=== PATIENT | male | born 1960 | race Caucasian/White ===

== ENCOUNTER 2019-04-17 14:39 | Inpatient (IN) | payer OTHER ==
--- NOTE | 2019-04-17 14:52 | PDOC ---
History of Present Illness - General Chief Complaint: Shortness of Breath Stated Complaint: DIFFICULTY BREATHING Time Seen by Provider: 04/17/19 14:51 History Source: Patient Exam Limitations: No Limitations - History of Present Illness Initial Comments: Pt is a 58 yo M, with PMH of HTN, HLD, and CHF (prior echo 2014, severely reduced EF, completely non-compliant with medication), who presents with complaints of SOB since yesterday. Pt states he has been on vacation last 2 weeks, and has been eating more salty food and drinking beer. Pt states he stopped taking his medication in 2015 because he "was feeling fine" and " worried about his liver from the cholesterol medication". Pt states the SOB is with exertion only, has never had this problem before, and was able to sleep throughout the night. Pt denies any fevers/chills, headache, vision changes, syncope, chest pain, cough, palpitations, orthopnea/PND, nausea/vomiting, abdominal pain, urinary symptoms, diarrhea/constipation, or leg swelling. EMS provided 500 mL IV NS, which was stopped on pt arrival to ED. 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 Drinks beer socially. Denies illicit drug use. Pt denies any recent travel or sick contacts. Surgical: remote L knee surgery Family: no relevant history. 04/17/19 15:31 04/17/19 15:44 Past History - Travel Traveled outside of the country in the last 30 days: No Close contact w/someone who was outside of country & ill: No - Past Medical History Allergies/Adverse Reactions: Allergies Allergy/AdvReac Type Severity Reaction Status Date / Time No Known Allergies Allergy Verified 08/18/16 18:22 Home Medications: Ambulatory Orders Aspirin [ASA -] 81 mg PO DAILY #30 tab.chew 03/14/15 Atorvastatin Ca [Lipitor] 20 mg PO HS #30 tablet 03/14/15 Carvedilol [Coreg -] 6.25 mg PO BID #60 tablet 03/14/15 Ramipril [Altace] 2.5 mg PO DAILY #30 capsule 03/14/15 Spironolactone [Aldactone -] 25 mg PO DAILY #30 tablet 03/14/15 COPD: No Diabetes: Yes (DIET CONTROLLED) HTN: Yes Hypercholesterolemia: Yes - Surgical History Orthopedic Surgery: Yes (Left knee) - Suicide/Smoking/Psychosocial Hx Smoking History: Current every day smoker Have you smoked in the past 12 months: Yes Number of Cigarettes Smoked Daily: 20 Information on smoking cessation initiated: No 'Breaking Loose' booklet given: 03/12/15 Hx Alcohol Use: No Drug/Substance Use Hx: No Substance Use Type: None Hx Substance Use Treatment: No Review of Systems - Review of Systems Able to Perform ROS?: Yes Is the patient limited Thai proficient: No Constitutional: Yes: Weight Stable. No: Chills, Diaphoresis, Fever, Loss of Appetite, Malaise, Weakness HEENTM: No: Blurred Vision, Double Vision, Nose Congestion, Throat Pain, Throat Swelling, Difficulty Swallowing Respiratory: Yes: Shortness of Breath, SOB with Exertion. No: Cough, Orthopnea , SOB at Rest, Wheezing, Productive cough, Hemoptysis Cardiac (ROS): No: Chest Pain, Edema, Irregular Heart Rate, Lightheadedness, Palpitations, Syncope, Chest Tightness ABD/GI: Yes: Abdominal Distended (since vacation and "eating salty food"). No: Constipated, Diarrhea, Nausea, Poor Appetite, Poor Fluid Intake, Rectal Bleeding , Vomiting, Abdominal cramping : No: Burning, Dysuria, Frequency, Pain, Urgency Musculoskeletal: No: Back Pain, Joint Pain, Muscle Pain, Muscle Weakness Integumentary: No: Rash, Sweating Neurological: No: Headache, Weakness, Unsteady Gait, Dizziness Psychiatric: No: Sleep Pattern Change, Change in Appetite Endocrine: No: Increased Urine, Change in Weight Hematologic/Lymphatic: No: Anemia, Blood Clots, Easy Bleeding, Easy Bruising All Other Systems: Reviewed and Negative *Physical Exam - Vital Signs Last Vital Signs Temp Pulse Resp BP Pulse Ox 98.7 F 123 H 22 H 146/86 100 04/17/19 14:42 04/17/19 14:42 04/17/19 14:42 04/17/19 14:42 04/17/19 14:42 - Physical Exam Comments: Vitals improved on exam (HR 80s, RR 14, 100% on 2L NC), pt afebrile. Pt lying comfortably and able to speak in full sentences; obese body habitus. Pt alert and oriented x3. audio/visual manager generally intact, muscular strength and sensation intact. No midline spinal tenderness, step-offs, or crepitus. Head normocephalic, atraumatic. Eyes PERRLA, EOMI. Oropharynx without erythema or exudates, no LAD b/l. No nasal congestion, hearing intact. Clear heart sounds, S1/S2, no JVD, b/l pedal edema, or heart murmur. Diminished breath sounds throughout, coarse breath sounds at b/l posterior bases. No wheezing or accessory muscle use. No abdominal or CVA tenderness to palpation, no rebound, no guarding. Abdomen soft, protuberant, and with normoactive bowel sounds. Skin without jaundice or rash. 04/17/19 15:36 Vital Signs - Vital Signs #1 Blood Pressure: 148/90 MAP: 109 BP Location: Right Arm Blood Pressure Position: Sitting Pulse Rate: 86 Respiratory Rate: 12 O2 Sat by Pulse Oximetry (%): 98 Oxygen Delivery Method: Room Air Oxygen Flow Rate: 0 ED Treatment Course - LABORATORY CBC & Chemistry Diagram: 04/17/19 15:20 04/17/19 15:25 Medical Decision Making - Medical Decision Making Pt was seen at bedside, also will be seen by attending Dr. Yeh. Pt presenting with SOB on exertion, with recent salty food intake/alcohol, non-compliant with CHF/HTN/HLD medications x3 years, most consistent with CHF exacerbation. Last echo done 2014 showed severely reduced EF. No recent surgeries, travel, and HR improved with NC O2, PE lower on differential. Will evaluate for CHF, ACS, pleural effusion vs infiltrate, renal dysfunction. EMS provided 500 mL IVF, which were stopped in the ER for concern of diminished EF. Pt states breathing is comfortable at this time. Providing 2L NC and saturation is 100%. Will wean from O2 as tolerated. Will continue to reassess pt and monitor for symptomatic improvement. ECG: Sinus arrhythmia, borderline LVH. No TWIs or significant ST segment changes. No significant changes from prior ECG (2016). 04/17/19 15:41 Chest x-ray shows atelectasis at R base. 04/17/19 15:46 CBC and CMP WNL lipid profile elevated trop <.02 Cardiology consulted (Dr. Perez) who fill follow pt. Providing 40 IV lasix, vitals improved and pt now breathing comfortably on room air. Pt admitted to hospitalist team (Dr. Smith). 04/17/19 17:03 *DC/Admit/Observation/Transfer Diagnosis at time of Disposition: Shortness of breath HTN (hypertension) Qualifiers: Hypertension type: unspecified Qualified Code(s): I10 - Essential (primary) hypertension CHF (congestive heart failure) Qualifiers: Heart failure type: unspecified Heart failure chronicity: acute on chronic Qualified Code(s): I50.9 - Heart failure, unspecified - Discharge Dispostion Condition at time of disposition: Stable Decision to Admit order: Yes - Referrals - Patient Instructions - Post Discharge Activity
--- NOTE | 2019-04-17 15:18 | PDOC ---
Documentation entered by Marjan Kulkarni SCRIBE, acting as scribe for Nazanin Yeh MD. Nazanin Yeh MD: This documentation has been prepared by the Shad forbes Mackenzie, SCRIBE, under my direction and personally reviewed by me in its entirety. I confirm that the documentation accurately reflects all work , treatment, procedures, and medical decision making performed by me. Attending Attestation - Resident Resident Name: NinaMaylin - ED Attending Attestation I have performed the following: I have examined & evaluated the patient, The case was reviewed & discussed with the resident, I agree w/resident's findings & plan - HPI HPI: Patient is a 58 year old male with a significant PMH of HTN, HLD, NSTEMI (2015) and CHF (noncompliant with medications for all conditions) who presents to the ED with one day1 of shortness of breath. 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 Patient states his last ecco was in 2014 (pertinent findings as per resident note). Patient notes that for the past few weeks he was on vacation (no travel by air) and endorses an increase in sodium and Etoh intake. Denies fever, chills, chest pain, palpitation, dizziness, N, V, D, abdominal pain, bladder and bowel problems, leg swelling, No sick contacts or travel outside of the [place] No new changes in medications. noncompliant with meds Allergies: None Past Medical History: as documented in EMR/HPI 04/17/19 15:25 04/17/19 15:58 - Physicial Exam PE: Agree with the resident's HPI and PE as documented in the electronic medical record. NAD, well appearing, on nasal cannula, EOMI, PERRL, nl conjunctiva, anicteric; neck supple. no JVD. lungs clear, RRR, no murmur, abdomen soft nontender. Back nontender. SMITH x4, no focal neuro deficits. trace peripheral edema. normal color for ethnicity, WWP. 04/17/19 15:26 04/17/19 15:57 - Medical Decision Making 04/17/19 15:16 See HPI for details. Prior notes reviewed, including admissions, discharges and consultations. Vital signs reviewed, initially tachy and tachypneic. improved with O2 Vital Signs Temp Pulse Resp BP Pulse Ox 98.7 F 123 H 22 H 146/86 100 04/17/19 14:42 04/17/19 14:42 04/17/19 14:42 04/17/19 14:42 04/17/19 14:42 DDx SOB:/CP ACS, PE, PTX, CHF, COPD exac, pulmonary edema, pleurisy, pneumonia, viral syndrome. effusion. anemia, electrolyte/metabolic derangements. laboratory results and imaging reviewed, basic labs and lytes wnl Cardiac panel_neg trop, +BNP 1700 suggestive of CHF EKG normal sinus rhythm, no interval abnormalities, narrow QRS, ST and T wave segments and morphology normal. Nonspecific T wave abnormalities ED course - last echo in 2014 when he had NSTEMI with severely depressed EF; otherwise has been poorly compliant with meds and recent salty intake and now SOB suggestive of CHF. admit for likely CHF, poor medication compliance and precipitation of his symptoms today admit to hospitalist service 04/17/19 15:58 04/18/19 13:29 Heart Score/ECG Review #1 ECG reviewed & interpreted by me at: 15:00 General ECG Interpretation: Sinus Rhythm, Normal Rate, Normal Intervals Compared to previous ECG there are: No significant change 04/17/19 15:56 EKG normal sinus rhythm at 83 bpm, no interval abnormalities, narrow QRS, ST and T wave segments and morphology normal. Nonspecific T wave abnormalities
--- NOTE | 2019-04-17 15:32 | CON.CARD ---
Consult Consult Specialty:: Cardiology Referred by:: Emergency Medicine Reason for Consultation:: CHF - History of Present Illness Chief Complaint: Dyspnea History of Present Illness: Patient is a 58 year old male with a significant PMH of HTN heart disease, HLD, and CHF with severely decreased LVEF 2014 (noncompliant with medications for all conditions) who presents to the ED with one day 1 of shortness of breath with exertion, increased bilateral LE edema. 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 He denies chest pain, near or true syncope, palpitations, orthopnea, PND or NSAID use. Allergies: None Past Medical History: as documented in EMR/HPI - History Source History Provided By: Patient Limitations to Obtaining History: No Limitations - Past Medical History Cardio/Vascular: Yes: HTN - Alcohol/Substance Use Hx Alcohol Use: No - Smoking History Smoking history: Current every day smoker Have you smoked in the past 12 months: Yes Aproximately how many cigarettes per day: 20 Home Medications - Allergies Allergies/Adverse Reactions: Allergies Allergy/AdvReac Type Severity Reaction Status Date / Time No Known Allergies Allergy Verified 08/18/16 18:22 - Home Medications Home Medications: Ambulatory Orders Aspirin [ASA -] 81 mg PO DAILY #30 tab.chew 03/14/15 Atorvastatin Ca [Lipitor] 20 mg PO HS #30 tablet 03/14/15 Carvedilol [Coreg -] 6.25 mg PO BID #60 tablet 03/14/15 Ramipril [Altace] 2.5 mg PO DAILY #30 capsule 03/14/15 Spironolactone [Aldactone -] 25 mg PO DAILY #30 tablet 03/14/15 Review of Systems - Review of Systems Cardiovascular: reports: Edema, Shortness of Breath Respiratory: reports: Exercise Intolerance, SOB on Exertion Vital Signs: Vital Signs Temperature 98.7 F 04/17/19 14:42 Pulse Rate 123 H 04/17/19 14:42 Respiratory Rate 22 H 04/17/19 14:42 Blood Pressure 146/86 04/17/19 14:42 O2 Sat by Pulse Oximetry (%) 100 04/17/19 14:42 Constitutional: Yes: No Distress, Calm Neck: Yes: Supple Respiratory: Yes: Regular, Diminished, On Nasal O2 Gastrointestinal: Yes: Normal Bowel Sounds, Soft, Abdomen, Obese Cardiovascular: Yes: Regular Rate and Rhythm JVD: Yes Carotid Bruit: No Heart Sounds: Yes: S1, S2 Murmur: Yes: Systolic Murmur, Grade 1 Edema: Yes Edema: LLE: 1+, RLE: 1+ - Other Data Labs, Other Data: Troponin, BNP 04/17/19 15:20 B-Natriuretic Peptide Cancelled Troponin, BNP 04/17/19 15:20 B-Natriuretic Peptide Cancelled NSR @ 80 LAE, LVH with PAC Ejection Fraction %: LVEF < 40 % Imaging - Results Chest X-ray: Pending, Report Reviewed (Right base ATX) Problem List - Problems (1) Acute on chronic systolic and diastolic heart failure, NYHA class 3 Code(s): I50.43 - ACUTE ON CHRONIC COMBINED SYSTOLIC AND DIASTOLIC HRT FAIL (2) Hypertensive cardiomyopathy Code(s): I11.9 - HYPERTENSIVE HEART DISEASE WITHOUT HEART FAILURE; I43 - CARDIOMYOPATHY IN DISEASES CLASSIFIED ELSEWHERE Qualifiers: Heart failure presence: with heart failure Qualified Code(s): I11.0 - Hypertensive heart disease with heart failure; I43 - Cardiomyopathy in diseases classified elsewhere (3) Hyperlipidemia Code(s): E78.5 - HYPERLIPIDEMIA, UNSPECIFIED Qualifiers: Hyperlipidemia type: pure hypercholesterolemia Qualified Code(s): E78.00 - Pure hypercholesterolemia, unspecified; E78.0 - Pure hypercholesterolemia (4) Noncompliance with medication regimen Code(s): Z91.14 - PATIENT'S OTHER NONCOMPLIANCE WITH MEDICATION REGIMEN Assessment/Plan 03/13/2015 Echocardiogram shows moderately dilated LV with severe decrease in LV function, mild MR, TR, mild LAE 1. Acute on chronic LV systolic failure referable to dietary and medication noncompliance 2. Hypertensive cardiovascular disease 3. Hyperlipidemia 1. Cycle cardiac enzymes to document peak, check BNP, TSH, lipid panel 2. IV diuresis with monitor diuretic response, renal fxn and electrolytes 3. Repeat echo to assess ventricular and valve fxn 4. Resume carvedilol 6.25 bid, Lipitor 20 qhs, start Entresto 24/26 bid, add spirinolactone 25 qd and uptitrate as tolerated after lab review 5. Will require R&LHC to evaluate etiology of cardiomyopathy once euvolemic 6. Thank you for consultative opportunity
[2019-04-17 15:52] LABS: BASO % 0.8 % (0-2.0); HEMATOCRIT 45.8 % (35.4-49); HEMOGLOBIN 15.5 GM/dL (11.7-16.9); LYMPH % 18.2 % (8-40); MCH 31.8 pg (25.7-33.7); MCHC 33.9 g/dl (32.0-35.9); MEAN CELL VOLUME 93.7 fl (80-96); MEAN PLT VOLUME 8.9 fl (7.5-11.1); MONO % 6.3 % (3.8-10.2); NEUT % 71.7 % (42.8-82.8); PLATELET COUNT 273 K/MM3 (134-434); RBC 4.89 M/mm3 (4.00-5.60); WHITE BLOOD COUNT 9.3 K/mm3 (4.0-10.0)
[2019-04-17 15:54] LABS: VENOUS PC02 34.8 mmHg (41-51); VENOUS PH 7.46 (7.31-7.41); VENOUS PO2 59.9 mmHg (30-40)
[2019-04-17 16:05] LABS: ALBUMIN 3.5 g/dl (3.4-5.0); BILIRUBIN,TOTAL 0.7 mg/dL (0.2-1); BLOOD UREA NITROGEN 10.7 mg/dL (7-18); CREATININE 0.8 mg/dL (0.55-1.3); N-TERMINAL BNP 1790.9 pg/ml (5-125); POTASSIUM 4.4 mmol/L (3.5-5.1); TOT PROT 6.3 g/dl (6.4-8.2)
[2019-04-17 16:09] LABS: INR 1.08 (0.83-1.09); PROTHROMBIN TIME (PATIENT) 12.8 SEC (9.7-13.0)
[2019-04-17] MEDS ORDERED: FUROSEMIDE 40 MG/4 ML INJECTABLE VIAL IVPUSH ONE (16:56)
[2019-04-17] MEDS ORDERED: FUROSEMIDE 40 MG/4 ML INJECTABLE VIAL ONE (17:36)
--- NOTE | 2019-04-17 18:05 | HP ---
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 He reports he is unable to walk one block without getting shortness of breath. He denied chest pain, orthopnea, PND , dizziness, palpitations or syncopy. He reports he stopped taking his medications about 5 years ago because has felt well. He reports he eats food high in salt and stomach has increased in size as he was on vacation at home and reported he ate more and drank alcohol . Upon evaluation in the Emergency Room BNP is 1790. CXR with pulmonary vascular congestion. Troponin was normal.Heart rate and oxygen saturation levels are normal. Cardiology has been consulted. He received one dosage of IV lasix 40 mg . He is being admitted to telemetry for further cardiac management and IV diuresis. Recent Travel:denies PAST MEDICAL HISTORY: hypertension hyperlipidemia systolic congestive heart failure PAST SURGICAL HISTORY: denies Social History: Smoking:yes, smokes 1ppd for the past year, smoked in his earlier years and stopped however restarted over the past year Alcohol:yes Drugs: no Family History: Denies cardiac family history Allergies No Known Allergies Allergy (Verified 08/18/16 18:22) HOME MEDICATIONS: Home Medications Medication Instructions Recorded Aspirin [ASA -] 81 mg PO DAILY #30 tab.chew 03/14/15 Atorvastatin Ca [Lipitor] 20 mg PO HS #30 tablet 03/14/15 Carvedilol [Coreg -] 6.25 mg PO BID #60 tablet 03/14/15 Ramipril [Altace] 2.5 mg PO DAILY #30 capsule 03/14/15 Spironolactone [Aldactone -] 25 mg PO DAILY #30 tablet 03/14/15 REVIEW OF SYSTEMS CONSTITUTIONAL: Absent: fever, chills, diaphoresis, generalized weakness, malaise, loss of appetite, weight change HEENT: Absent: rhinorrhea, nasal congestion, throat pain, throat swelling, difficulty swallowing, mouth swelling, ear pain, eye pain, visual changes CARDIOVASCULAR: Absent: chest pain, syncope, palpitations, irregular heart rate, lightheadedness , peripheral edema RESPIRATORY: Absent: cough, shortness of breath, dyspnea with exertion, orthopnea, wheezing, stridor, hemoptysis GASTROINTESTINAL: Absent: abdominal pain, abdominal distention, nausea, vomiting, diarrhea, constipation, melena, hematochezia GENITOURINARY: Absent: dysuria, frequency, urgency, hesitancy, hematuria, flank pain, genital pain MUSCULOSKELETAL: Absent: myalgia, arthralgia, joint swelling, back pain, neck pain SKIN: Absent: rash, itching, pallor HEMATOLOGIC/IMMUNOLOGIC: Absent: easy bleeding, easy bruising, lymphadenopathy, frequent infections ENDOCRINE: Absent: unexplained weight gain, unexplained weight loss, heat intolerance, cold intolerance NEUROLOGIC: Absent: headache, focal weakness or paresthesias, dizziness, unsteady gait, seizure, mental status changes, bladder or bowel incontinence PSYCHIATRIC: Absent: anxiety, depression, suicidal or homicidal ideation, hallucinations. PHYSICAL EXAMINATION Vital Signs - 24 hr 04/17/19 04/17/19 04/17/19 14:41 14:42 17:04 Temperature 98.7 F Pulse Rate 123 H Pulse Rate [#1] 86 Respiratory 22 H Rate Respiratory 12 Rate [#1] Blood Pressure 146/86 Blood Pressure 148/90 [#1] O2 Sat by Pulse 100 100 Oximetry (%) O2 Sat by Pulse 98 Oximetry (%) [ #1] GENERAL: awake alert and fully oriented no acute distress HEAD: normal with no signs of trauma EYES: pupils equal round and reactive to light EARS, NOSE, THROAT: ears normal nares patent NECK:no significant JVD LUNGS: coarse breath sounds equal no wheezing no use of accessory muscles HEART: regular rate and rhythm normal S1 and S2 without murmur ABDOMEN: soft nontender normoactive bowel sounds slightly distended MUSCULOSKELETAL: normal range of motion UPPER EXTREMITIES: 2+ pulses warm well-perfused no cyanosis LOWER EXTREMITIES: 2+ pulses warm well-perfused 1+ lower extremity edema present NEUROLOGICAL: normal speech PSYCHIATRIC: cooperative good eye contact appropriate mood and affect SKIN: warm dry normal turgor no rashes or lesions noted nail beds and lips pink Laboratory Results - last 24 hr 04/17/19 04/17/19 04/17/19 15:15 15:20 15:20 WBC 9.3 RBC 4.89 Hgb 15.5 Hct 45.8 MCV 93.7 MCH 31.8 MCHC 33.9 RDW 14.0 Plt Count 273 D MPV 8.9 Absolute Neuts (auto) 6.7 Neutrophils % 71.7 Lymphocytes % 18.2 Monocytes % 6.3 Eosinophils % 3.0 Basophils % 0.8 Nucleated RBC % 0 PT with INR INR VBG pH 7.46 H POC VBG pCO2 34.8 L POC VBG pO2 59.9 H VBG HCO3 24.5 VBG O2 Sat (Neeraj) 90.9 H VBG Base Excess 1.6 Sodium Potassium Chloride Carbon Dioxide Anion Gap BUN Creatinine Est GFR (CKD-EPI)AfAm Est GFR (CKD-EPI)NonAf Random Glucose Calcium Total Bilirubin AST ALT Alkaline Phosphatase Creatine Kinase Troponin I B-Natriuretic Peptide Cancelled Total Protein Albumin Triglycerides Cholesterol Total LDL Cholesterol HDL Cholesterol 04/17/19 04/17/19 04/17/19 15:20 15:25 15:25 WBC RBC Hgb Hct MCV MCH MCHC RDW Plt Count MPV Absolute Neuts (auto) Neutrophils % Lymphocytes % Monocytes % Eosinophils % Basophils % Nucleated RBC % PT with INR 12.80 INR 1.08 VBG pH POC VBG pCO2 POC VBG pO2 VBG HCO3 VBG O2 Sat (Neeraj) VBG Base Excess Sodium 142 Potassium 4.4 Chloride 108 H Carbon Dioxide 28 Anion Gap 6 L BUN 10.7 Creatinine 0.8 Est GFR (CKD-EPI)AfAm 115.74 Est GFR (CKD-EPI)NonAf 99.86 Random Glucose 103 Calcium 9.0 Total Bilirubin 0.7 AST 26 ALT 53 Alkaline Phosphatase 62 Creatine Kinase 82 Troponin I 0.02 B-Natriuretic Peptide 1790.9 H Total Protein 6.3 L Albumin 3.5 Triglycerides 154 H Cholesterol 220 H Total LDL Cholesterol 153 H HDL Cholesterol 42 ASSESSMENT/PLAN: Mr. Mendoza is a 58 year old male with no recent medical or cardiac follow up with past medical history significant for systolic congestive heart failure with a severely reduced ejection fraction by echocardiogram in 2015, hypertension and hyperlipidemia who presented with worsening shortness of breath on minimal exertion for the past 2 days due to medical and dietary noncompliance.He is being admitted to telemetry for further cardiac management and IV diuresis. #1 Acute on Chronic Systolic Congestive Heart Failure/Cardiomyopathy Workup-BNP 1790, CXR with pulmonary vascular congestion,troponin normal.Heart rate and oxygen saturation levels are normal. Cardiology- Dr. Perez evaluated patient. He received one dosage of IV lasix 40 mg . Continue with IV lasix 40 mg twice daily.Monitor daily weight, strict I&O's, renal studies and electrolytes. Resumed coreg 6.25mg twice daily ,spiroaldactone 25mg once daily and added [id number] twice daily as per Cardiology. Echocardiogram is pending. Once euvolemic will need a right and left heart cardiac catherization to exclude CAD in setting of severe cardiomyopathy. #2Hypertension Uncontrolled (SBP 140's) Resumed coreg, aldactone and added entresto as recommended per Cardiology. #3 Hyperlipidemia Atorvastatin 40 mg once daily was resumed. LFT's are normal. DVT Prophylaxsis -lovenox 30 mg once twice daily FEN -low sodium diet, monitor electrolytes Visit type - Emergency Visit Emergency Visit: Yes ED Registration Date: 04/17/19 Care time: The patient presented to the Emergency Department on the above date and was hospitalized for further evaluation of their emergent condition. - New Patient This patient is new to me today: Yes Date on this admission: 04/17/19 - Critical Care Critical Care patient: No
[2019-04-17] MEDS: ENOXAPARIN NA (PORCINE) 30 MG/0.3 ML DISP.SYRIN SQ SCH (19:00)
[2019-04-17] MEDS ORDERED: ENOXAPARIN NA (PORCINE) 30 MG/0.3 ML DISP.SYRIN SQ ONE (19:23)
[2019-04-17] MEDS: SACUBITRIL/VALSARTAN 24 MG-26 MG TABLET PO SCH (21:51)
[2019-04-17] MEDS: ATORVASTATIN CA 40 MG TABLET (FP) PO SCH (21:51)
[2019-04-17] MEDS: CARVEDILOL 6.25 MG TABLET (FP) PO SCH (21:51)
[2019-04-18] MEDS: ENOXAPARIN NA (PORCINE) 30 MG/0.3 ML DISP.SYRIN SQ SCH (06:21)
[2019-04-18] MEDS: FUROSEMIDE 40 MG/4 ML INJECTABLE VIAL IVPUSH SCH ×2 (06:21→14:23)
[2019-04-18 07:52] LABS: HEMATOCRIT 48.7 % (35.4-49); HEMOGLOBIN 16.7 GM/dL (11.7-16.9); MCH 32.1 pg (25.7-33.7); MCHC 34.2 g/dl (32.0-35.9); MEAN CELL VOLUME 93.8 fl (80-96); MEAN PLT VOLUME 9.1 fl (7.5-11.1); PLATELET COUNT 279 K/MM3 (134-434); RBC 5.19 M/mm3 (4.00-5.60); RDW 14.2 % (11.9-15.9); WHITE BLOOD COUNT 8.8 K/mm3 (4.0-10.0)
[2019-04-18 07:57] LABS: ANION GAP 6 MMOL/L (8-16); CALCIUM 8.9 mg/dL (8.5-10.1); CHLORIDE 106 mmol/L (98-107); CO2 27 mmol/L (21-32); CREATININE 0.8 mg/dL (0.55-1.3); GLUCOSE,RANDOM 128 mg/dL (74-106); SODIUM 139 mmol/L (136-145)
[2019-04-18] MEDS: CARVEDILOL 6.25 MG TABLET (FP) PO SCH ×2 (09:39→22:36)
[2019-04-18] MEDS: ASPIRIN 81 MG CHEWABLE TABLETS PO SCH (09:39)
[2019-04-18] MEDS ORDERED: PT OWN MED DRAWER 7, Y5N ONE ×2 (09:39→21:01)
[2019-04-18] MEDS: SPIRONOLACTONE 25 MG TABLET (FP) PO SCH (09:40)
[2019-04-18] MEDS: SACUBITRIL/VALSARTAN 24 MG-26 MG TABLET PO SCH ×2 (09:40→22:36)
--- NOTE | 2019-04-18 10:41 | PN ---
Progress Note, Physician History of Present Illness: Shortness of breath with exertion, bilateral LE edema resolving with diuresis and afterload reduction. - Current Medication List Current Medications: Active Medications Aspirin (Asa -) 81 mg PO DAILY [facility] Last Admin: 04/18/19 09:39 Dose: 81 mg Atorvastatin Calcium (Lipitor -) 40 mg PO HS [facility] Last Admin: 04/17/19 21:51 Dose: 40 mg Carvedilol (Coreg -) 6.25 mg PO BID [facility] Last Admin: 04/18/19 09:39 Dose: 6.25 mg Enoxaparin Sodium (Lovenox -) 30 mg SQ Q12H [facility] Last Admin: 04/18/19 06:21 Dose: 30 mg Furosemide (Lasix Injection -) 40 mg IVPUSH BID@0600,1400 [facility] Last Admin: 04/18/19 06:21 Dose: 40 mg Sacubitril/Valsartan (Entresto 24 Mg-26 Mg Tablet) 1 tab PO BID [facility] Last Admin: 04/18/19 09:40 Dose: 1 tab Spironolactone (Aldactone -) 25 mg PO DAILY [facility] Last Admin: 04/18/19 09:40 Dose: 25 mg - Objective Vital Signs: Vital Signs Temperature 97.5 F L 04/18/19 06:00 Pulse Rate 70 04/18/19 06:00 Respiratory Rate 20 04/18/19 06:00 Blood Pressure 142/92 04/18/19 06:00 O2 Sat by Pulse Oximetry (%) 98 04/18/19 09:00 Constitutional: Yes: No Distress, Calm Neck: Yes: Supple Cardiovascular: Yes: Regular Rate and Rhythm Respiratory: Yes: Regular, CTA Bilaterally Gastrointestinal: Yes: Normal Bowel Sounds, Soft Edema: Yes Edema: LLE: Trace, RLE: Trace Labs: CBC, BMP 04/18/19 06:30 04/18/19 06:30 INR, PTT INR 1.08 (0.83-1.09) 04/17/19 15:20 Problem List - Problems (1) Acute on chronic systolic and diastolic heart failure, NYHA class 3 Code(s): I50.43 - ACUTE ON CHRONIC COMBINED SYSTOLIC AND DIASTOLIC HRT FAIL (2) Hypertensive cardiomyopathy Code(s): I11.9 - HYPERTENSIVE HEART DISEASE WITHOUT HEART FAILURE; I43 - CARDIOMYOPATHY IN DISEASES CLASSIFIED ELSEWHERE Qualifiers: Heart failure presence: with heart failure Qualified Code(s): I11.0 - Hypertensive heart disease with heart failure; I43 - Cardiomyopathy in diseases classified elsewhere (3) Hyperlipidemia Code(s): E78.5 - HYPERLIPIDEMIA, UNSPECIFIED Qualifiers: Hyperlipidemia type: pure hypercholesterolemia Qualified Code(s): E78.00 - Pure hypercholesterolemia, unspecified; E78.0 - Pure hypercholesterolemia (4) Noncompliance with medication regimen Code(s): Z91.14 - PATIENT'S OTHER NONCOMPLIANCE WITH MEDICATION REGIMEN Assessment/Plan 03/13/2015 Echocardiogram shows moderately dilated LV with severe decrease in LV function, mild MR, TR, mild LAE 1. Acute on chronic LV systolic failure referable to dietary and medication noncompliance improving 2. Hypertensive cardiovascular disease 3. Hyperlipidemia 1. Ruled out DE, check TSH 2. Decrease IV diuresis with monitor diuretic response, renal fxn and electrolytes 3. Repeat echo to assess ventricular and valve fxn 4. Continue carvedilol 6.25 bid, Lipitor 40 qhs, Entresto 24/26 bid, and spirinolactone 25 qd and uptitrate as tolerated 5. Will require R&LHC to evaluate etiology of cardiomyopathy once euvolemic
--- NOTE | 2019-04-18 11:12 | EKG ---
Test Reason : Blood Pressure : / mmHG Vent. Rate : 079 BPM Atrial Rate : 079 BPM P-R Int : 144 ms QRS Dur : 100 ms QT Int : 396 ms P-R-T Axes : 063 -10 111 degrees QTc Int : 454 ms NORMAL SINUS RHYTHM BIATRIAL ENLARGEMENT SEPTAL INFARCT (CITED ON OR BEFORE 17-APR-2019) ABNORMAL ECG WHEN COMPARED WITH ECG OF 17-APR-2019 14:43, NO SIGNIFICANT CHANGE WAS FOUND Confirmed by CANDACE FIGUEROA, MOR ([id number]) on 04/18/2019 11:12:26 AM Referred By: Confirmed By:MOR MARIA MD
--- NOTE | 2019-04-18 11:13 | EKG ---
Test Reason : Blood Pressure : / mmHG Vent. Rate : 080 BPM Atrial Rate : 080 BPM P-R Int : 148 ms QRS Dur : 098 ms QT Int : 400 ms P-R-T Axes : 052 -12 074 degrees QTc Int : 461 ms SINUS RHYTHM WITH MARKED SINUS ARRHYTHMIA LEFT ATRIAL ENLARGEMENT SEPTAL INFARCT , AGE UNDETERMINED ABNORMAL ECG WHEN COMPARED WITH ECG OF 18-AUG-2016 18:34, T WAVE VARIATION VENT. RATE HAS DECREASED Confirmed by CANDACE FIGUEROA, MOR ([id number]) on 04/18/2019 11:13:20 AM Referred By: Confirmed By:MOR MARIA MD
--- NOTE | 2019-04-18 11:19 | PN ---
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 He reports non compliance with past home medications as well as poor dietary intake with a high salt diet. On admission his bnp was elevated at 1790. chest xray shows pulmonary vascular congestion. - Current Medication List Current Medications: Active Medications Aspirin (Asa -) 81 mg PO DAILY [facility] Last Admin: 04/18/19 09:39 Dose: 81 mg Atorvastatin Calcium (Lipitor -) 40 mg PO HS [facility] Last Admin: 04/17/19 21:51 Dose: 40 mg Carvedilol (Coreg -) 6.25 mg PO BID [facility] Last Admin: 04/18/19 09:39 Dose: 6.25 mg Enoxaparin Sodium (Lovenox -) 30 mg SQ Q12H [facility] Last Admin: 04/18/19 06:21 Dose: 30 mg Furosemide (Lasix Injection -) 40 mg IVPUSH BID@0600,1400 [facility] Last Admin: 04/18/19 06:21 Dose: 40 mg Sacubitril/Valsartan (Entresto 24 Mg-26 Mg Tablet) 1 tab PO BID [facility] Last Admin: 04/18/19 09:40 Dose: 1 tab Spironolactone (Aldactone -) 25 mg PO DAILY [facility] Last Admin: 04/18/19 09:40 Dose: 25 mg - Objective Vital Signs: Vital Signs Temperature 97.5 F L 04/18/19 06:00 Pulse Rate 70 04/18/19 06:00 Respiratory Rate 20 04/18/19 06:00 Blood Pressure 142/92 04/18/19 06:00 O2 Sat by Pulse Oximetry (%) 98 04/18/19 09:00 Constitutional: Yes: Well Nourished, No Distress, Calm Eyes: Yes: WNL HENT: Yes: WNL Neck: Yes: Supple Cardiovascular: Yes: Regular Rate and Rhythm Respiratory: Yes: Diminished Gastrointestinal: Yes: Normal Bowel Sounds, Soft ...Rectal Exam: Yes: Deferred Genitourinary: Yes: WNL Musculoskeletal: Yes: WNL Extremities: Yes: WNL Edema: Yes Edema: LLE: Trace, RLE: Trace Integumentary: Yes: WNL Neurological: Yes: Alert, Oriented Labs: CBC, BMP 04/18/19 06:30 04/18/19 06:30 INR, PTT INR 1.08 (0.83-1.09) 04/17/19 15:20 - ....Imaging Chest X-ray: Report Reviewed Problem List - Problems (1) Acute on chronic systolic and diastolic heart failure, NYHA class 3 Assessment/Plan: on lasix 40mg IV daily dosing weights decreased 95kg>89 kg with diuresis. monitor intake and output, low salt diet echo 04/18/2019: LV moderately dilated, LV systolic function is severely reduced , severe blobal hypokinesis of the LV, EF 25-30%, RV fx normal, LA severely dilated, moderate urbano regurg, mild to moderate tricuspid regurg, mild aortic sclerosis. on carvedilol 6.25 bid, Lipitor 40 qhs, Entresto 24/26 bid, and spirinolactone 25 qd and uptitrate as tolerated. will need close cardiology follow up as an outpatient. Code(s): I50.43 - ACUTE ON CHRONIC COMBINED SYSTOLIC AND DIASTOLIC HRT FAIL (2) HTN (hypertension) Assessment/Plan: on carvedilol 6.25 bid, Lipitor 40 qhs, Entresto 24/26 bid, and spirinolactone 25 qd and uptitrate as tolerated. Code(s): I10 - ESSENTIAL (PRIMARY) HYPERTENSION Qualifiers: Hypertension type: unspecified Qualified Code(s): I10 - Essential (primary ) hypertension (3) Hyperlipidemia Assessment/Plan: started on lipitor for elevated cholesterol levels. he was informed that periodic labs to monitor liver function is important. PCP referred to him. Code(s): E78.5 - HYPERLIPIDEMIA, UNSPECIFIED Qualifiers: Hyperlipidemia type: pure hypercholesterolemia Qualified Code(s): E78.00 - Pure hypercholesterolemia, unspecified; E78.0 - Pure hypercholesterolemia (4) Shortness of breath Assessment/Plan: resolved, ambulating from his room to solarium without any shortness of breath. speaking in clear sentences with ambulation. Code(s): R06.02 - SHORTNESS OF BREATH (5) Obesity (BMI 30.0-34.9) Assessment/Plan: will benefit from weight loss to improve overall health dietary consulted for recommendations while patient is here. nutritional follow up as an outpatient encouraged Code(s): E66.9 - OBESITY, UNSPECIFIED (6) Noncompliance with medication regimen Assessment/Plan: will need ongoing teaching on heart failure, importance of taking cardiac meds and cardiology follow up as as outpatient. PCP referred to him on d/c packet and he is encouraged to follow up. When possible, fixed dose combination medications may increase his compliance as he is concerned over taking too many meds. discussed importance of compliance with him. Code(s): Z91.14 - PATIENT'S OTHER NONCOMPLIANCE WITH MEDICATION REGIMEN (7) Prophylactic measure Assessment/Plan: lovenox 40mg daily Code(s): Z29.9 - ENCOUNTER FOR PROPHYLACTIC MEASURES, UNSPECIFIED Visit type - Emergency Visit Emergency Visit: Yes ED Registration Date: 04/17/19 Care time: The patient presented to the Emergency Department on the above date and was hospitalized for further evaluation of their emergent condition. - New Patient This patient is new to me today: Yes Date on this admission: 04/18/19 - Critical Care Critical Care patient: No - Discharge Referral Referred to [facility] Med P.C.: No
--- NOTE | 2019-04-18 12:49 | ECHO ---
Name: MICAH ERIK Exam:Adult Echocardiogram Study Date: 04/18/2019 10:59 AM Age: 58 yrs Reason For Study: CHF Height: 67 in Weight: 210 lb BSA: 2.1 m2 MMode/2D Measurements & Calculations IVSd: 1.1 cm Ao root diam: 2.8 cm LVIDd: 6.6 cm LA dimension: 4.8 cm LVIDs: 5.8 cm LVPWd: 1.1 cm EDV(Teich): 221.5 ml LVOT diam: 2.0 cm ESV(Teich): 168.3 ml LAV (MOD-bp): 125.0 ml Doppler Measurements & Calculations MV E max tommy: 93.1 cm/sec Ao V2 max: 117.4 cm/sec MV A max tommy: 38.1 cm/sec Ao max P.5 mmHg MV E/A: 2.4 Ao V2 mean: 93.4 cm/sec MV dec time: 0.18 sec Ao mean P.8 mmHg Ao V2 VTI: 26.0 cm MARGIE(I,D): 1.2 cm2 AI P1/2t: 670.5 msec MARGIE(V,D): 1.5 cm2 AI max tommy: 326.6 cm/sec LV V1 max P.3 mmHg AI max P.7 mmHg LV V1 mean P.59 mmHg AI dec slope: 142.7 cm/sec2 LV V1 max: 57.5 cm/sec LV V1 mean: 35.6 cm/sec LV V1 VTI: 10.0 cm MR max tommy: 502.4 cm/sec SV(LVOT): 30.3 ml MR max P.7 mmHg TR max tommy: 263.7 cm/sec PA V2 max: 56.5 cm/sec TR max P.0 mmHg PA max P.3 mmHg PI end-d tommy: 84.3 cm/sec Med Peak E' Tommy: 5.8 cm/sec Med E/e': 16.1 Lat Peak E' Tommy: 7.0 cm/sec Lat E/e': 13.3 Procedure A complete two-dimensional transthoracic echocardiogram was performed (2D, M-mode, Doppler and color flow Doppler). Left Ventricle The left ventricle is moderately dilated. Left ventricular systolic function is severely reduced. Eje ction Fraction = 25-30%. There is severe global hypokinesis of the left ventricle. Right Ventricle The right ventricle is normal size. The right ventricular systolic function is normal. RV systolic TD I is 17 cm/s. Atria The left atrium is severely dilated. Right atrial size is normal. Mitral Valve There is mild mitral annular calcification. There is moderate mitral regurgitation. Tricuspid Valve The tricuspid valve is normal in structure and function. There is mild to moderate tricuspid regurgit ation. Pulmonary artery systolic pressure is at least 37 mmHg assuming RA pressure of 3 mmHg. Aortic Valve There is mild aortic sclerosis.;. Hemodynamically significant valvular aortic stenosis cannot be excl uded. DI (dimensionless index) is 0.38. Mild aortic regurgitation. Pulmonic Valve The pulmonic valve is not well visualized. Mild pulmonic valvular regurgitation. Great Vessels The aortic root is normal size. Pericardium/Pleura There is no pericardial effusion. Interpretation Summary The left ventricle is moderately dilated. Left ventricular systolic function is severely reduced. There is severe global hypokinesis of the left ventricle. Ejection Fraction = 25-30%. The right ventricular systolic function is normal. The left atrium is severely dilated. Right atrial size is normal. There is mild mitral annular calcification. There is moderate mitral regurgitation. There is mild to moderate tricuspid regurgitation. There is mild aortic sclerosis. Hemodynamically significant valvular aortic stenosis cannot be excluded. DI (dimensionless index) is 0.38 Mild aortic regurgitation. Pulmonary artery systolic pressure is at least 37 mmHg assuming RA pressure of 3 mmHg Mild pulmonic valvular regurgitation. There is no pericardial effusion. Previous study is not available for comparison Dino Mckinley MD 04/18/2019 12:48 PM
[2019-04-18] MEDS: ATORVASTATIN CA 40 MG TABLET (FP) PO SCH (22:36)
[2019-04-19] MEDS: FUROSEMIDE 40 MG/4 ML INJECTABLE VIAL IVPUSH SCH (06:21)
[2019-04-19 06:46] LABS: BASO % 1.1 % (0-2.0); EOS % 7.6 % (0-4.5); HEMATOCRIT 48.5 % (35.4-49); HEMOGLOBIN 16.6 GM/dL (11.7-16.9); LYMPH % 21.6 % (8-40); MCHC 34.2 g/dl (32.0-35.9); MEAN CELL VOLUME 93.6 fl (80-96); MEAN PLT VOLUME 8.7 fl (7.5-11.1); MONO % 7.2 % (3.8-10.2); NEUT % 62.5 % (42.8-82.8); PLATELET COUNT 258 K/MM3 (134-434); RBC 5.19 M/mm3 (4.00-5.60); RDW 13.9 % (11.9-15.9); WHITE BLOOD COUNT 8.1 K/mm3 (4.0-10.0)
[2019-04-19 07:20] LABS: ALBUMIN 3.3 g/dl (3.4-5.0); BILIRUBIN,TOTAL 0.6 mg/dL (0.2-1); BLOOD UREA NITROGEN 14.2 mg/dL (7-18); CALCIUM 8.9 mg/dL (8.5-10.1); CREATININE 0.8 mg/dL (0.55-1.3); MAGNESIUM 2.3 mg/dL (1.8-2.4); POTASSIUM 4.1 mmol/L (3.5-5.1); TOT PROT 6.2 g/dl (6.4-8.2)
--- NOTE | 2019-04-19 07:57 | PN ---
Progress Note, Physician Chief Complaint: shortness of breath on admission. 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 He reports non compliance with past home medications as well as poor dietary intake with a high salt diet. On admission his BNP was elevated at 1790. CXR showed increased pulmonary vascular congestion. - Current Medication List Current Medications: Active Medications Aspirin (Asa -) 81 mg PO DAILY [facility] Last Admin: 04/18/19 09:39 Dose: 81 mg Atorvastatin Calcium (Lipitor -) 40 mg PO HS [facility] Last Admin: 04/18/19 22:36 Dose: 40 mg Carvedilol (Coreg -) 6.25 mg PO BID [facility] Last Admin: 04/18/19 22:36 Dose: 6.25 mg Enoxaparin Sodium (Lovenox -) 40 mg SQ DAILY [facility] Furosemide (Lasix Injection -) 40 mg IVPUSH 0600 [facility] Last Admin: 04/19/19 06:21 Dose: 40 mg Sacubitril/Valsartan (Entresto 24 Mg-26 Mg Tablet) 1 tab PO BID [facility] Last Admin: 04/18/19 22:36 Dose: 1 tab Spironolactone (Aldactone -) 25 mg PO DAILY [facility] Last Admin: 04/18/19 09:40 Dose: 25 mg - Objective Vital Signs: Vital Signs Temperature 97.8 F 04/19/19 06:00 Pulse Rate 58 L 04/19/19 06:00 Respiratory Rate 20 04/19/19 06:00 Blood Pressure 142/83 04/19/19 06:00 O2 Sat by Pulse Oximetry (%) 97 04/18/19 22:00 Constitutional: Yes: Well Nourished, No Distress, Calm Eyes: Yes: WNL, Conjunctiva Clear, EOM Intact HENT: Yes: WNL, Atraumatic, Normocephalic Neck: Yes: WNL, Supple, Trachea Midline Cardiovascular: Yes: WNL, Regular Rate and Rhythm Respiratory: Yes: WNL, Regular, CTA Bilaterally Gastrointestinal: Yes: WNL, Normal Bowel Sounds ...Rectal Exam: Yes: Deferred Genitourinary: Yes: WNL Breast(s): Yes: WNL Musculoskeletal: Yes: WNL Extremities: Yes: WNL Edema: LLE: Trace, RLE: Trace Integumentary: Yes: WNL Neurological: Yes: WNL, Alert, Oriented ...Motor Strength: WNL Psychiatric: Yes: WNL, Alert, Oriented Labs: CBC, BMP 04/19/19 05:40 04/19/19 05:40 INR, PTT INR 1.08 (0.83-1.09) 04/17/19 15:20 - ....Imaging Chest X-ray: Image Reviewed (increased PVC) Problem List - Problems (1) Acute on chronic systolic (congestive) heart failure Assessment/Plan: Appreciate cardiology consultatuion c/w lasix 40mg IV daily, will convert to PO prior to DC weights decreased 95kg>88 kg with diuresis, c/w daily weights monitor intake and output, low salt diet TTE 04/18/2019: LV moderately dilated, LV systolic function is severely reduced, severe blobal hypokinesis of the LV, EF 25-30%, RV fx normal, LA severely dilated, moderate urbano regurg, mild to moderate tricuspid regurg, mild aortic sclerosis. c/w carvedilol 6.25 bid, Lipitor 40 qhs, Entresto 24/26 bid, and aldactone 25 qd and uptitrate if needed plan for cardiac cath as inpatient r/t non-compliance at home with treatment will need close cardiology follow up as an outpatient. Code(s): I50.23 - ACUTE ON CHRONIC SYSTOLIC (CONGESTIVE) HEART FAILURE (2) HTN (hypertension) Assessment/Plan: Normotensive presently c/w carvedilol 6.25 bid, Lipitor 40 qhs, Entresto 24/26 bid, and spirinolactone 25 qd Code(s): I10 - ESSENTIAL (PRIMARY) HYPERTENSION Qualifiers: Hypertension type: unspecified Qualified Code(s): I10 - Essential (primary ) hypertension (3) Obesity (BMI 30.0-34.9) Assessment/Plan: will benefit from weight loss to improve overall health dietary consulted for recommendations while patient is hospitalized nutritional follow up as an outpatient encouraged Code(s): E66.9 - OBESITY, UNSPECIFIED (4) Prophylactic measure Assessment/Plan: FEN no additional IVF needed c/w low fat/cholesterol diet monitor electrolytes while on diuretic therapy [employer] Administrator to see patient DVT c/w lovenox Dispo maintain as inpatient discharge planning full code Code(s): Z29.9 - ENCOUNTER FOR PROPHYLACTIC MEASURES, UNSPECIFIED (5) Shortness of breath Assessment/Plan: resolved and not requiring O2 able to ambulate from his room to solarium without any shortness of breath. speaking in clear sentences with ambulation. c/w diuresis Code(s): R06.02 - SHORTNESS OF BREATH (6) Hyperlipidemia Assessment/Plan: c/w lipitor low fat/cholesterol diet Code(s): E78.5 - HYPERLIPIDEMIA, UNSPECIFIED Qualifiers: Hyperlipidemia type: pure hypercholesterolemia Qualified Code(s): E78.00 - Pure hypercholesterolemia, unspecified; E78.0 - Pure hypercholesterolemia (7) Noncompliance with medication regimen Assessment/Plan: will need ongoing teaching on heart failure, importance of taking cardiac meds and cardiology follow up as as outpatient. PCP referred to him on d/c packet and he is encouraged to follow up. When possible, fixed dose combination medications may increase his compliance as he is concerned over taking too many meds. discussed importance of compliance with him. will discuss with SW to see if patient is eligible for HF program in community Code(s): Z91.14 - PATIENT'S OTHER NONCOMPLIANCE WITH MEDICATION REGIMEN Visit type - Emergency Visit Emergency Visit: Yes ED Registration Date: 04/17/19 Care time: The patient presented to the Emergency Department on the above date and was hospitalized for further evaluation of their emergent condition. - New Patient This patient is new to me today: Yes Date on this admission: 04/19/19 - Critical Care Critical Care patient: No - Discharge Referral Referred to [facility] Med P.C.: No
[2019-04-19] MEDS ORDERED: PT OWN MED DRAWER 7, Y5N ONE (12:01)
[2019-04-19] MEDS: SACUBITRIL/VALSARTAN 24 MG-26 MG TABLET PO SCH (12:02)
[2019-04-19] MEDS: SPIRONOLACTONE 25 MG TABLET (FP) PO SCH (12:02)
[2019-04-19] MEDS: ENOXAPARIN NA (PORCINE) 40 MG/0.4 ML DISP.SYRIN SQ SCH (12:03)
[2019-04-19] MEDS: ASPIRIN 81 MG CHEWABLE TABLETS PO SCH (12:03)
[2019-04-19] MEDS: CARVEDILOL 6.25 MG TABLET (FP) PO SCH ×2 (12:03→21:06)
--- NOTE | 2019-04-19 12:31 | PN ---
Progress Note, Physician Chief Complaint: Events noted Not in distress History of Present Illness: Patient was seen and examined. Awake and alert. Chart was reviewed Denies chest pain, SOB or palpitations - Current Medication List Current Medications: Active Medications Aspirin (Asa -) 81 mg PO DAILY [facility] Last Admin: 04/19/19 12:03 Dose: 81 mg Atorvastatin Calcium (Lipitor -) 40 mg PO HS [facility] Last Admin: 04/18/19 22:36 Dose: 40 mg Carvedilol (Coreg -) 6.25 mg PO BID [facility] Last Admin: 04/19/19 12:03 Dose: 6.25 mg Enoxaparin Sodium (Lovenox -) 40 mg SQ DAILY [facility] Last Admin: 04/19/19 12:03 Dose: 40 mg Furosemide (Lasix Injection -) 40 mg IVPUSH 0600 [facility] Last Admin: 04/19/19 06:21 Dose: 40 mg Sacubitril/Valsartan (Entresto 24 Mg-26 Mg Tablet) 1 tab PO BID [facility] Last Admin: 04/19/19 12:02 Dose: 1 tab Spironolactone (Aldactone -) 25 mg PO DAILY [facility] Last Admin: 04/19/19 12:02 Dose: 25 mg - Objective Vital Signs: Vital Signs Temperature 98 F 04/19/19 09:27 Pulse Rate 80 04/19/19 09:27 Respiratory Rate 20 04/19/19 09:27 Blood Pressure 140/80 04/19/19 09:27 O2 Sat by Pulse Oximetry (%) 98 04/19/19 09:03 Eyes: Yes: PERRL HENT: Yes: Atraumatic Neck: Yes: Supple Cardiovascular: Yes: Regular Rate and Rhythm, S1, S2 Respiratory: Yes: CTA Bilaterally Gastrointestinal: Yes: Normal Bowel Sounds, Soft. No: Tenderness Edema: No Additional Findings/Remarks: - Review of Systems Constitutional: denies: Weakness. denies: Chills, Fever Cardiovascular: denies: Palpitations, (+) Shortness of Breath. denies: Chest Pain Respiratory: denies: Cough, denies:Hemoptysis, Orthopnea, PND Gastrointestinal: denies: Abdominal Pain, Constipation, Diarrhea, Melena, Nausea , Rectal Bleeding, Vomiting Genitourinary: denies: Dysuria Neurological: denies: Dizziness, Headache, Seizure, Syncope Labs: CBC, BMP 04/19/19 05:40 08/13/19 05:40 INR, PTT INR 1.08 (0.83-1.09) 04/17/19 15:20 Problem List - Problems (1) Dilated cardiomyopathy Code(s): I42.0 - DILATED CARDIOMYOPATHY (2) Mitral valve regurgitation Code(s): I34.0 - NONRHEUMATIC MITRAL (VALVE) INSUFFICIENCY Qualifiers: Cardiac valve disease etiology: nonrheumatic Qualified Code(s): I34.0 - Nonrheumatic mitral (valve) insufficiency (3) Acute on chronic systolic (congestive) heart failure Code(s): I50.23 - ACUTE ON CHRONIC SYSTOLIC (CONGESTIVE) HEART FAILURE (4) CHF (congestive heart failure) Code(s): I50.9 - HEART FAILURE, UNSPECIFIED Qualifiers: Heart failure type: unspecified Heart failure chronicity: acute on chronic Qualified Code(s): I50.9 - Heart failure, unspecified (5) HTN (hypertension) Code(s): I10 - ESSENTIAL (PRIMARY) HYPERTENSION Qualifiers: Hypertension type: unspecified Qualified Code(s): I10 - Essential (primary ) hypertension (6) Acute on chronic systolic and diastolic heart failure, NYHA class 3 Code(s): I50.43 - ACUTE ON CHRONIC COMBINED SYSTOLIC AND DIASTOLIC HRT FAIL (7) Hyperlipidemia Code(s): E78.5 - HYPERLIPIDEMIA, UNSPECIFIED Qualifiers: Hyperlipidemia type: pure hypercholesterolemia Qualified Code(s): E78.00 - Pure hypercholesterolemia, unspecified; E78.0 - Pure hypercholesterolemia (8) Hypertensive cardiomyopathy Code(s): I11.9 - HYPERTENSIVE HEART DISEASE WITHOUT HEART FAILURE; I43 - CARDIOMYOPATHY IN DISEASES CLASSIFIED ELSEWHERE Qualifiers: Heart failure presence: with heart failure Qualified Code(s): I11.0 - Hypertensive heart disease with heart failure; I43 - Cardiomyopathy in diseases classified elsewhere Assessment/Plan 1. Acute on chronic LV systolic failure referable to dietary and medication noncompliance 2. Hypertensive cardiovascular disease 3. Hyperlipidemia 4. Dilated cardiomyopathy 5. Valvular heart disease with moderate MR and possible PLAN: 1. Currently on IV Furosemide with monitoring renal function and electrolytes eventually to switch to PO diuresis 2. Echocardiography reviewed with severely reduced LV systolic function, LVEF 25 -30%, moderate MR and possible with DI 0.38 3. Continue Carvedilol 6.25 mg BID, Lipitor 40 mg QHS, Entresto 24/26 mg BID ( uptitrate) and Spirinolactone 25 mg QD and uptitrate as tolerated 4. Will require right and left heart catheterization to evaluate etiology of cardiomyopathy once euvolemic. Will make arrangement possibly as inpatient as he had been noncompliant with follow up as outpatient 5. Since he has had LVEF less than 35% for some time, ICD implantation would be indicated if patient is agreeable Further plans are to follow Dino Mckinley MD
[2019-04-19 13:21] VITALS: BMI 30.5
[2019-04-19] MEDS: ATORVASTATIN CA 40 MG TABLET (FP) PO SCH (21:06)
[2019-04-19] MEDS: SACUBITRIL/VALSARTAN 49 MG-51 MG TABLET PO SCH (22:31)
[2019-04-20] MEDS: FUROSEMIDE 40 MG/4 ML INJECTABLE VIAL IVPUSH SCH (05:57)
[2019-04-20 07:33] LABS: EOS % 6.7 % (0-4.5); HEMATOCRIT 53.6 % (35.4-49); HEMOGLOBIN 18.2 GM/dL (11.7-16.9); LYMPH % 24.7 % (8-40); MCH 31.9 pg (25.7-33.7); MCHC 33.9 g/dl (32.0-35.9); MEAN CELL VOLUME 94.2 fl (80-96); MEAN PLT VOLUME 8.9 fl (7.5-11.1); MONO % 6.6 % (3.8-10.2); PLATELET COUNT 298 K/MM3 (134-434); RBC 5.69 M/mm3 (4.00-5.60); RDW 13.8 % (11.9-15.9); WHITE BLOOD COUNT 8.8 K/mm3 (4.0-10.0)
[2019-04-20 07:55] LABS: BILIRUBIN,TOTAL 0.7 mg/dL (0.2-1); BLOOD UREA NITROGEN 12.1 mg/dL (7-18); CALCIUM 9.5 mg/dL (8.5-10.1); CREATININE 0.9 mg/dL (0.55-1.3); MAGNESIUM 2.3 mg/dL (1.8-2.4); POTASSIUM 4.4 mmol/L (3.5-5.1); TOT PROT 7.4 g/dl (6.4-8.2)
--- NOTE | 2019-04-20 08:01 | PN ---
Progress Note, Physician Chief Complaint: shortness of breath on admission. Observed patient ambulation without difficulty in corridor History of Present Illness: Patient is a 58 year old male (has no PCP or research professional) with past medical history significant for systolic congestive heart failure with a severely reduced EF by echocardiogram in 2014, hypertension and hyperlipidemia who presents with symptoms of worsening shortness of breath on minimal exertion for the 2 days prior to presentation to ED. He reports non compliance with past home medications as well as poor dietary intake with a high salt diet. On admission his BNP was elevated at 1790. CXR showed increased pulmonary vascular congestion. - Current Medication List Current Medications: Active Medications Aspirin (Asa -) 81 mg PO DAILY [facility] Last Admin: 04/19/19 12:03 Dose: 81 mg Atorvastatin Calcium (Lipitor -) 40 mg PO HS [facility] Last Admin: 04/19/19 21:06 Dose: 40 mg Carvedilol (Coreg -) 6.25 mg PO BID [facility] Last Admin: 04/19/19 21:06 Dose: 6.25 mg Enoxaparin Sodium (Lovenox -) 40 mg SQ DAILY [facility] Last Admin: 04/19/19 12:03 Dose: 40 mg Furosemide (Lasix Injection -) 40 mg IVPUSH 0600 [facility] Last Admin: 04/20/19 05:57 Dose: 40 mg Sacubitril/Valsartan (Entresto 49 Mg-51 Mg Tablet) 1 tab PO BID [facility] Last Admin: 04/19/19 22:31 Dose: 1 tab Spironolactone (Aldactone -) 25 mg PO DAILY [facility] Last Admin: 04/19/19 12:02 Dose: 25 mg - Objective Vital Signs: Vital Signs Temperature 97.8 F 04/20/19 05:54 Pulse Rate 73 04/20/19 05:54 Respiratory Rate 20 04/20/19 05:54 Blood Pressure 138/93 04/20/19 05:54 O2 Sat by Pulse Oximetry (%) 98 04/19/19 21:00 Constitutional: Yes: Well Nourished, No Distress, Calm Eyes: Yes: WNL, Conjunctiva Clear, EOM Intact HENT: Yes: WNL, Atraumatic, Normocephalic Neck: Yes: WNL, Supple, Trachea Midline Cardiovascular: Yes: WNL, Regular Rate and Rhythm Respiratory: Yes: WNL, Regular, CTA Bilaterally Gastrointestinal: Yes: WNL, Normal Bowel Sounds, Soft ...Rectal Exam: Yes: Deferred Genitourinary: Yes: WNL Breast(s): Yes: WNL Musculoskeletal: Yes: WNL Extremities: Yes: WNL Edema: No Peripheral Pulses WNL: Yes Integumentary: Yes: WNL Neurological: Yes: WNL, Alert, Oriented ...Motor Strength: WNL Psychiatric: Yes: WNL, Alert, Oriented Labs: CBC, BMP 04/20/19 06:15 INR, PTT INR 1.08 (0.83-1.09) 04/17/19 15:20 Problem List - Problems (1) Acute on chronic systolic (congestive) heart failure Code(s): I50.23 - ACUTE ON CHRONIC SYSTOLIC (CONGESTIVE) HEART FAILURE (2) HTN (hypertension) Code(s): I10 - ESSENTIAL (PRIMARY) HYPERTENSION Qualifiers: Hypertension type: unspecified Qualified Code(s): I10 - Essential (primary ) hypertension (3) Obesity (BMI 30.0-34.9) Code(s): E66.9 - OBESITY, UNSPECIFIED (4) Prophylactic measure Code(s): Z29.9 - ENCOUNTER FOR PROPHYLACTIC MEASURES, UNSPECIFIED (5) Shortness of breath Code(s): R06.02 - SHORTNESS OF BREATH (6) Hyperlipidemia Code(s): E78.5 - HYPERLIPIDEMIA, UNSPECIFIED Qualifiers: Hyperlipidemia type: pure hypercholesterolemia Qualified Code(s): E78.00 - Pure hypercholesterolemia, unspecified; E78.0 - Pure hypercholesterolemia (7) Noncompliance with medication regimen Code(s): Z91.14 - PATIENT'S OTHER NONCOMPLIANCE WITH MEDICATION REGIMEN
--- NOTE | 2019-04-20 09:15 | PN ---
Progress Note, Physician History of Present Illness: Shortness of breath with exertion, bilateral LE edema resolved with diuresis and afterload reduction. - Current Medication List Current Medications: Active Medications Aspirin (Asa -) 81 mg PO DAILY [facility] Last Admin: 04/19/19 12:03 Dose: 81 mg Atorvastatin Calcium (Lipitor -) 40 mg PO HS [facility] Last Admin: 04/19/19 21:06 Dose: 40 mg Carvedilol (Coreg -) 6.25 mg PO BID [facility] Last Admin: 04/19/19 21:06 Dose: 6.25 mg Enoxaparin Sodium (Lovenox -) 40 mg SQ DAILY [facility] Last Admin: 04/19/19 12:03 Dose: 40 mg Furosemide (Lasix Injection -) 40 mg IVPUSH 06 [facility] Last Admin: 04/20/19 05:57 Dose: 40 mg Sacubitril/Valsartan (Entresto 49 Mg-51 Mg Tablet) 1 tab PO BID [facility] Last Admin: 04/19/19 22:31 Dose: 1 tab Spironolactone (Aldactone -) 25 mg PO DAILY [facility] Last Admin: 04/19/19 12:02 Dose: 25 mg - Objective Vital Signs: Vital Signs Temperature 97.8 F 04/20/19 05:54 Pulse Rate 73 04/20/19 05:54 Respiratory Rate 20 04/20/19 05:54 Blood Pressure 138/93 04/20/19 05:54 O2 Sat by Pulse Oximetry (%) 98 04/19/19 21:00 Constitutional: Yes: No Distress, Calm Neck: Yes: Supple Cardiovascular: Yes: Regular Rate and Rhythm Respiratory: Yes: Regular, CTA Bilaterally Gastrointestinal: Yes: Normal Bowel Sounds, Soft Edema: No Labs: CBC, BMP 04/20/19 06:15 04/20/19 06:15 INR, PTT INR 1.08 (0.83-1.09) 04/17/19 15:20 - ....Imaging EKG: Report Reviewed (Tele: NSR) Problem List - Problems (1) Acute on chronic systolic and diastolic heart failure, NYHA class 3 Code(s): I50.43 - ACUTE ON CHRONIC COMBINED SYSTOLIC AND DIASTOLIC HRT FAIL (2) Hypertensive cardiomyopathy Code(s): I11.9 - HYPERTENSIVE HEART DISEASE WITHOUT HEART FAILURE; I43 - CARDIOMYOPATHY IN DISEASES CLASSIFIED ELSEWHERE Qualifiers: Heart failure presence: with heart failure Qualified Code(s): I11.0 - Hypertensive heart disease with heart failure; I43 - Cardiomyopathy in diseases classified elsewhere (3) Hyperlipidemia Code(s): E78.5 - HYPERLIPIDEMIA, UNSPECIFIED Qualifiers: Hyperlipidemia type: pure hypercholesterolemia Qualified Code(s): E78.00 - Pure hypercholesterolemia, unspecified; E78.0 - Pure hypercholesterolemia (4) Noncompliance with medication regimen Code(s): Z91.14 - PATIENT'S OTHER NONCOMPLIANCE WITH MEDICATION REGIMEN Assessment/Plan 04/18/2019 Echocardiography reviewed with severely reduced LV systolic function , LVEF 25-30%, moderate MR and possible with DI 0.38 03/13/2015 Echocardiogram shows moderately dilated LV with severe decrease in LV function, mild MR, TR, mild LAE 1. Acute on chronic LV systolic failure referable to dietary and medication noncompliance resolved 2. Hypertensive cardiovascular disease 3. Hyperlipidemia 4. Dilated cardiomyopathy 5. Valvular heart disease with moderate MR and possible PLAN: 1. Decrease Furosemide 20 po qd with monitoring renal function and electrolytes 2. Increase Carvedilol 12.5 mg BID, Lipitor 40 mg QHS, Entresto 49/51 mg BID ( uptitrate) and Spirinolactone 25 mg QD and uptitrate as tolerated 3. Will require right and left heart catheterization to evaluate etiology of cardiomyopathy once euvolemic. Patient agrees to f/u as outpatient so procedure will be scheduled then. 4. Since he has had LVEF less than 35% for some time, ICD implantation would be indicated if patient is agreeable
[2019-04-20] MEDS ORDERED: PT OWN MED DRAWER 7, Y5N ONE (09:47)
[2019-04-20 09:49] VITALS: BP 142/74; PULSE 70; TEMP 98
[2019-04-20] MEDS: SPIRONOLACTONE 25 MG TABLET (FP) PO SCH (09:49)
[2019-04-20] MEDS: CARVEDILOL 6.25 MG TABLET (FP) PO SCH (09:49)
[2019-04-20] MEDS: ENOXAPARIN NA (PORCINE) 40 MG/0.4 ML DISP.SYRIN SQ SCH (09:49)
[2019-04-20] MEDS: ASPIRIN 81 MG CHEWABLE TABLETS PO SCH (09:49)
[2019-04-20] MEDS: SACUBITRIL/VALSARTAN 49 MG-51 MG TABLET PO SCH (09:50)
[2019-04-20] MEDS ORDERED: CARVEDILOL 6.25 MG TABLET (FP) PO ONE ×2 (10:28→10:45)
--- NOTE | 2019-04-20 10:38 | DS ---
Physical Exam: SUBJECTIVE: Patient seen and examined OBJECTIVE: Vital Signs Period Temp Pulse Resp BP Sys/Aguilar Pulse Ox Last 24 Hr 97.8 F-98.5 F 60-73 18-20 126-143/74-93 98 PHYSICAL EXAM GENERAL: The patient is awake, alert, and fully oriented, in no acute distress. HEAD: Normal with no signs of trauma. EYES: PERRL, extraocular movements intact, sclera anicteric, conjunctiva clear. ENT: Ears normal, nares patent, oropharynx clear without exudates, moist mucous membranes. NECK: Trachea midline, full range of motion, supple. LUNGS: Breath sounds equal, clear to auscultation bilaterally, no wheezes, no crackles, no accessory muscle use. HEART: Regular rate and rhythm, S1, S2 without murmur, rub or gallop. ABDOMEN: Soft, nontender, nondistended, normoactive bowel sounds, no guarding, no rebound, no hepatosplenomegaly, no masses. EXTREMITIES: 2+ pulses, warm, well-perfused, no edema. NEUROLOGICAL: Cranial nerves II through XII grossly intact. Normal speech, gait not observed. PSYCH: Normal mood, normal affect. SKIN: Warm, dry, normal turgor, no rashes or lesions noted. LABS Laboratory Results - last 24 hr 04/19/19 04/20/19 04/20/19 06:30 06:15 06:15 WBC 8.8 RBC 5.69 H Hgb 18.2 H Hct 53.6 H MCV 94.2 MCH 31.9 MCHC 33.9 RDW 13.8 Plt Count 298 MPV 8.9 Absolute Neuts (auto) 5.4 Neutrophils % 61.0 Lymphocytes % 24.7 Monocytes % 6.6 Eosinophils % 6.7 H Basophils % 1.0 Nucleated RBC % 0 Sodium 138 Potassium 4.4 Chloride 101 Carbon Dioxide 32 Anion Gap 5 L BUN 12.1 Creatinine 0.9 Est GFR (CKD-EPI)AfAm 110.27 Est GFR (CKD-EPI)NonAf 95.14 Random Glucose 128 H Hemoglobin A1c % 5.8 Calcium 9.5 Magnesium 2.3 Total Bilirubin 0.7 AST 20 ALT 52 Alkaline Phosphatase 68 Total Protein 7.4 Albumin 4.0 HOSPITAL COURSE: Date of Admission:04/17/19 Date of Discharge: 04/20/19 Chief Complaint: Admitted for shortness of breath on admission. 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 He reports non compliance with past home medications as well as poor dietary intake with a high salt diet. On admission his BNP was elevated at 1790. CXR showed increased pulmonary vascular congestion. Problem List - Problems (1) Acute on chronic systolic (congestive) heart failure Assessment/Plan: cardiology consulted for addistance in [facility] Lasix changed to IV for further diuresis and on discharge changed back to PO lasix 20mg daily weights decreased 95kg>88 kg with diuresis. TTE 04/18/2019: LV moderately dilated, LV systolic function is severely reduced, severe blobal hypokinesis of the LV, EF 25-30%, RV fx normal, LA severely dilated, moderate urbano regurg, mild to moderate tricuspid regurg, mild aortic sclerosis. Carvedilol increased to 12.5bid, Lipitor 40 qhs, Entresto 49/51 bid, and aldactone 25 qd and will remain un these doeses at home plan for cardiac cath as outpatient. Pt had agreed to follow with Dr Perez for catheterization will need close cardiology follow up as an outpatient. Code(s): I50.23 - ACUTE ON CHRONIC SYSTOLIC (CONGESTIVE) HEART FAILURE (2) HTN (hypertension) Assessment/Plan: Normotensive with increased doses of medications Code(s): I10 - ESSENTIAL (PRIMARY) HYPERTENSION Qualifiers: Hypertension type: unspecified Qualified Code(s): I10 - Essential (primary ) hypertension (3) Obesity (BMI 30.0-34.9) Assessment/Plan: will benefit from weight loss to improve overall health dietary consulted for recommendations made for weight loss when he returns home nutritional follow up as an outpatient encouraged Code(s): E66.9 - OBESITY, UNSPECIFIED (4) Shortness of breath Assessment/Plan: resolved and not requiring O2 able to ambulate from his room to solarium without any shortness of breath. speaking in clear sentences with ambulation. Improved with diuresis Code(s): R06.02 - SHORTNESS OF BREATH (5) Hyperlipidemia Assessment/Plan: c/w lipitor low fat/cholesterol diet Code(s): E78.5 - HYPERLIPIDEMIA, UNSPECIFIED Qualifiers: Hyperlipidemia type: pure hypercholesterolemia Qualified Code(s): E78.00 - Pure hypercholesterolemia, unspecified; E78.0 - Pure hypercholesterolemia (6) Noncompliance with medication regimen Assessment/Plan: will need ongoing teaching on heart failure, importance of taking cardiac meds and cardiology follow up as as outpatient. PCP referred to him on d/c packet and he is encouraged to follow up. Dr Corley When possible, fixed dose combination medications may increase his compliance as he is concerned over taking too many meds. discussed importance of compliance with him. Code(s): Z91.14 - PATIENT'S OTHER NONCOMPLIANCE WITH MEDICATION REGIMEN Minutes to complete discharge: 45 Discharge Summary Reason For Visit: ACUTE ON CHRONIC CHF Current Active Problems Acute on chronic systolic (congestive) heart failure (Acute) CHF (congestive heart failure) (Acute) Dilated cardiomyopathy (Acute) HTN (hypertension) (Acute) Mitral valve regurgitation (Acute) Obesity (BMI 30.0-34.9) (Acute) Prophylactic measure (Acute) Shortness of breath (Acute) Hospital Course: Chief Complaint: Admitted for shortness of breath on admission. 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 He reports non compliance with past home medications as well as poor dietary intake with a high salt diet. On admission his BNP was elevated at 1790. CXR showed increased pulmonary vascular congestion. Problem List - Problems (1) Acute on chronic systolic (congestive) heart failure Assessment/Plan: cardiology consulted for addistance in [place] Lasix changed to IV for further diuresis and on discharge changed back to PO lasix 20mg daily weights decreased 95kg>88 kg with diuresis. TTE 04/18/2019: LV moderately dilated, LV systolic function is severely reduced, severe blobal hypokinesis of the LV, EF 25-30%, RV fx normal, LA severely dilated, moderate urbano regurg, mild to moderate tricuspid regurg, mild aortic sclerosis. Carvedilol increased to 12.5bid, Lipitor 40 qhs, Entresto 49/51 bid, and aldactone 25 qd and will remain un these doeses at home plan for cardiac cath as outpatient. Pt had agreed to follow with Dr Perez for catheterization will need close cardiology follow up as an outpatient. Code(s): I50.23 - ACUTE ON CHRONIC SYSTOLIC (CONGESTIVE) HEART FAILURE (2) HTN (hypertension) Assessment/Plan: Normotensive with increased doses of medications Code(s): I10 - ESSENTIAL (PRIMARY) HYPERTENSION Qualifiers: Hypertension type: unspecified Qualified Code(s): I10 - Essential (primary ) hypertension (3) Obesity (BMI 30.0-34.9) Assessment/Plan: will benefit from weight loss to improve overall health dietary consulted for recommendations made for weight loss when he returns home nutritional follow up as an outpatient encouraged Code(s): E66.9 - OBESITY, UNSPECIFIED (4) Shortness of breath Assessment/Plan: resolved and not requiring O2 able to ambulate from his room to solarium without any shortness of breath. speaking in clear sentences with ambulation. Improved with diuresis Code(s): R06.02 - SHORTNESS OF BREATH (5) Hyperlipidemia Assessment/Plan: c/w lipitor low fat/cholesterol diet Code(s): E78.5 - HYPERLIPIDEMIA, UNSPECIFIED Qualifiers: Hyperlipidemia type: pure hypercholesterolemia Qualified Code(s): E78.00 - Pure hypercholesterolemia, unspecified; E78.0 - Pure hypercholesterolemia (6) Noncompliance with medication regimen Assessment/Plan: will need ongoing teaching on heart failure, importance of taking cardiac meds and cardiology follow up as as outpatient. PCP referred to him on d/c packet and he is encouraged to follow up. Dr Corley When possible, fixed dose combination medications may increase his compliance as he is concerned over taking too many meds. discussed importance of compliance with him. Code(s): Z91.14 - PATIENT'S OTHER NONCOMPLIANCE WITH MEDICATION REGIMEN - Instructions Diet, Activity, Other Instructions: Mr Mendoza You were admitted for shortness of breath. You medciations were increased and your symptoms improved. You will go home on carvedilol increased to 12.5 mg twice a day, Lipitor 40 at bedtime Entresto 49/51twice a day Aldactone 25mg daily It is important that you do not miss any doses. You are to call Dr Perez to make and appointment for the cardiac catheterization [phone] Quinn to make as appointment as your primary care doctor [phone] It is important that you eat a low fat low cholesterol diet, no fried of fatty food. Try to exercise 30 minutes a day. Call your primary care doctor if you ahve any problems Referrals: Tariq Quinn MD [Staff Physician] - (call for an appointment. ) Lorenzo Perez MD [Staff Physician] - 1 Week (Call for appoitment when you get home) - Home Medications Comprehensive Discharge Medication List: Ambulatory Orders Aspirin [ASA -] 81 mg PO DAILY #30 tab.chew 03/14/15 Ramipril [Altace] 2.5 mg PO DAILY #30 capsule 03/14/15 Spironolactone [Aldactone -] 25 mg PO DAILY #30 tablet 03/14/15 Atorvastatin Ca [Lipitor] 40 mg PO HS tablet 04/20/19 Carvedilol [Coreg -] 12.5 mg PO BID #60 tablet 04/20/19 Furosemide [Lasix -] 20 mg PO DAILY #30 tablet 04/20/19 Sacubitril/Valsartan [Entresto 49 mg-51 mg Tablet] 1 tab PO BID #30 tablet 04/20 Problem List - Problems (1) Acute on chronic systolic (congestive) heart failure Code(s): I50.23 - ACUTE ON CHRONIC SYSTOLIC (CONGESTIVE) HEART FAILURE (2) HTN (hypertension) Code(s): I10 - ESSENTIAL (PRIMARY) HYPERTENSION Qualifiers: Hypertension type: unspecified Qualified Code(s): I10 - Essential (primary ) hypertension (3) Obesity (BMI 30.0-34.9) Code(s): E66.9 - OBESITY, UNSPECIFIED (4) Prophylactic measure Code(s): Z29.9 - ENCOUNTER FOR PROPHYLACTIC MEASURES, UNSPECIFIED (5) Shortness of breath Code(s): R06.02 - SHORTNESS OF BREATH (6) Hyperlipidemia Code(s): E78.5 - HYPERLIPIDEMIA, UNSPECIFIED Qualifiers: Hyperlipidemia type: pure hypercholesterolemia Qualified Code(s): E78.00 - Pure hypercholesterolemia, unspecified; E78.0 - Pure hypercholesterolemia (7) Noncompliance with medication regimen Code(s): Z91.14 - PATIENT'S OTHER NONCOMPLIANCE WITH MEDICATION REGIMEN This patient is new to me today: No Emergency Visit: Yes ED Registration Date: 04/17/19 Care time: The patient presented to the Emergency Department on the above date and was hospitalized for further evaluation of their emergent condition. Critical Care patient: No - Discharge Referral Referred to [facility] Med [facility] No Physician Referral: Tariq Ivan MD ([facility])
[2019-04-20] MEDS ORDERED: CARVEDILOL 6.25 MG TABLET (FP) PO SCH (22:00)
[2019-04-20] MEDS ORDERED: CARVEDILOL 12.5 MG TABLET (FP) PO SCH (22:00)
[2019-04-21] MEDS ORDERED: FUROSEMIDE 20 MG TABLET (FP) PO SCH (10:00)
== END 2019-04-20 13:29 | disposition home or self-care (01) | DRG 293 ==
LOC: JER 14:39 → JERBED 16:50 → J7W 21:01 → J4W 04-18 15:19
PROVIDERS: ADMIT Internal Medicine; ATTEND Nurse Practitioner Acute Care
DX: I11.0 Hypertensive heart disease with heart failure (principal); I50.23 Acute on chronic systolic (congestive) heart failure; I42.0 Dilated cardiomyopathy; Z91.14 Patient's other noncompliance with medication regimen; Z91.11 Patient's noncompliance with dietary regimen; I34.0 Nonrheumatic mitral (valve) insufficiency; E66.9 Obesity, unspecified; Z68.30 Body mass index [BMI] 30.0-30.9, adult; E78.5 Hyperlipidemia, unspecified; I25.2 Old myocardial infarction; F17.210 Nicotine dependence, cigarettes, uncomplicated
CPT/HCPCS: 36415; 71045-TC-FY; 80048; 80053; 80061; 82550; 82803; 83036; 83721; 83735; 83880; 84439; 84443; 84484; 85025; 85027; 85610; 93005; 93010; 93306-TC; 99283-25